=== PATIENT | male | born 1945 | race Caucasian/White ===

== ENCOUNTER 2021-01-04 09:07 | Observation (INO) | payer MEDICARE ==
[~2021-01-04] VITALS: Ht 182.9 cm; Wt 114.5 kg
[2021-01-04] VITALS (21 sets, daily range): BP systolic 138–165; BP diastolic 82–105
[2021-01-04] MEDS ORDERED: cefazolin/dext.iso 2gm/50ml 50 ML IV ONE (09:50)
[2021-01-04] MEDS ORDERED: normal saline 1,000 ML IV SCH (09:50)
[2021-01-04] MEDS ORDERED: ceFAZolin 2gm in dextrose, iso 50 ML IV ONE (09:52)
[2021-01-04] MEDS ORDERED: diphenhydrAMINE 25mg capsule PO PRN ×2 (09:55→19:00)
[2021-01-04] MEDS ORDERED: GLIP5TAB13 PO (10:40)
[2021-01-04] MEDS ORDERED: LISI2.5T2 PO (10:40)
[2021-01-04] MEDS ORDERED: DIPH25CA83 PO (10:40)
[2021-01-04] MEDS ORDERED: ATOR-2 PO (10:40)
[2021-01-04] MEDS ORDERED: ASPI-611 PO (10:40)
[2021-01-04] MEDS ORDERED: CARV25TA2 PO (10:40)
[2021-01-04] MEDS ORDERED: CLOP75TA15 PO (10:40)
[2021-01-04] MEDS ORDERED: METF-438 PO (10:40)
[2021-01-04 11:21] LABS: BASOPHILS # (AUTO) 0.1 X10'3 (0-0.2); BASOPHILS % (AUTO) 1.3 % (0-1); EOSINOPHILS # (AUTO) 0.2 X10'3 (0-0.9); EOSINOPHILS % (AUTO) 1.7 % (0-6); HEMATOCRIT 41.2 % (42.0-52.0); HEMOGLOBIN 14.4 g/dl (14.0-17.9); LYMPHOCYTES # (AUTO) 2.6 X10'3 (1.1-4.8); LYMPHOCYTES % (AUTO) 27.9 % (21-51); MEAN CORPUSCULAR HEMOGLOBIN 35.3 PG (27.0-31.0); MEAN CORPUSCULAR VOLUME 100.8 FL (78-98); MEAN PLATELET VOLUME 9.8 FL (7.4-10.4); MONOCYTES % (AUTO) 10.9 % (2-12); NEUTROPHILS # (AUTO) 5.3 X10'3 (1.8-7.7); NEUTROPHILS % (AUTO) 58.2 % (42-75); PLATELET COUNT 163 X10'3 (140-440); RED BLOOD COUNT 4.09 X10'6 (4.70-6.10); RED CELL DISTRIBUTION WIDTH 12.3 % (11.5-14.5); WHITE BLOOD COUNT 9.1 X10'3 (4.5-11.0)
[2021-01-04 11:29] LABS: ALBUMIN 3.9 G/DL (3.4-5.0); ANION GAP 10 (8-16); BLOOD UREA NITROGEN 15 MG/DL (7-18); BUN/CREATININE RATIO 15.8 (5.4-32.0); CHLORIDE 104 MMOL/L (99-107); CREATININE 0.95 MG/DL (0.60-1.10); GLUCOSE 181 MG/DL (70-104); SODIUM 142 MMOL/L (135-145); eGFR 77 ML/MIN
[2021-01-04] MEDS: normal saline 1,000 ML IV SCH ×3 (11:44→22:39)
[2021-01-04] MEDS ORDERED: midazolam 1 mg/ML 2ml injection ONE ×6 (12:19→15:29)
[2021-01-04] MEDS ORDERED: iohexol 350MG/ML 100ml bottle IV ONE ×3 (12:19→14:00)
[2021-01-04] MEDS ORDERED: LIDOcaine 1% (10mg/ml)w/preservative injection 20ml MDV ONE (12:19)
[2021-01-04] MEDS ORDERED: fentaNYL/PF 50MCG/1 ML 2ML syringe ONE ×4 (12:19→15:29)
[2021-01-04] MEDS ORDERED: heparin 1,000unit/ml 10ml vial 10 ML ONE (12:19)
[2021-01-04] MEDS ORDERED: proCHLORperazine 10 MG/2 ml inj ONE (13:04)
[2021-01-04] MEDS ORDERED: vancomycin 1,000mg inj ONE (14:00)
[2021-01-04] MEDS ORDERED: LIDOcaine 1% W/epiNEPHrine 1:100,000 20ml vial ONE ×2 (14:00→14:26)
[2021-01-04] MEDS ORDERED: Thrombin (Bovine) 5,000 unit vial TP ONE (15:24)
[2021-01-04] MEDS ORDERED: ondansetron/PF 4mg/2ml inj IV PRN (16:05)
[2021-01-04] MEDS ORDERED: HYDROcodone/acetaminophen 5mg/325mg tablet PO PRN ×2 (16:10→20:30)
[2021-01-04] MEDS ORDERED: HYDROcodone/acetaminophen 10/325mg tab PO PRN (16:10)
[2021-01-04] MEDS ORDERED: proCHLORperazine 10 MG/2 ml inj IV PRN (16:10)
--- NOTE | 2021-01-04 19:50 | NUR ---
PATIENT ARRIVED STABLE WITH AT BEDSIDE , NO S/S OF HEMORRHAGE AT THIS TIME
--- NOTE | 2021-01-04 20:00 | NUR ---
180-Rica RN with primary RN to discuss pacemaker discharge, assessed right groin site, CDI, stood patient at side of bed, walked in place, denied dizziness, ambulated patient into hallway and back, at doorway patient began to leak blood from right groin site, walked patient to bed, laid flat, applied manual pressure to site. sterile gloves donned, Rica removed dressing, primary RN placed sterile 4x4 gauze to site, waited 15 minutes, no further bleeding noted, dressing placed. 1844- Notified Dr. Muller that as we were ambulating patient for discharge patient began bleeding from right groin site. Received orders for patient to remain flat for additional 2 hours with femstop. Patient to be transferred to telemetry floor for further observation. Patient is to be discharged at 2200 if site is stable but okay to stay over night for observation. 1944- Provided report to Keith, transferred patient with all belongings to 3016[address], , Julieta, present. Keith present to assess femoral site and pulses upon arrival to telemetry.
[2021-01-04] MEDS: carVEDilol 12.5mg tablet PO SCH (21:25)
[2021-01-05 02:00] VITALS: BP 136/77
[2021-01-05] MEDS: normal saline 1,000 ML IV SCH (03:59)
--- NOTE | 2021-01-05 06:27 | NUR ---
Patient in room PCU 3016. I have received report from Keith VERAS and had the opportunity to ask questions and assume patient care.
--- NOTE | 2021-01-05 07:11 | NUR ---
Patient does not take insulin at home, and does not want insulin this morning to cover BG 223, patient drank a soda prior to check. Going home early afternoon.
[2021-01-05 07:50] LABS: CHOL/HDL RATIO 4.8 (0.00-4.99); CHOLESTEROL 184 MG/DL (0-200); HDL CHOLESTEROL 38 MG/DL (35-60); LDL CHOLESTEROL 103 MG/DL (50-100); TRIGLYCERIDES 216 MG/DL (20-135)
[2021-01-05] MEDS ORDERED: clopidogrel 75mg tablet PO SCH (08:00)
[2021-01-05] MEDS ORDERED: atorvastatin 20mg tablet PO SCH (08:00)
[2021-01-05] MEDS ORDERED: lisinopril 2.5mg tablet PO SCH (08:00)
[2021-01-05] MEDS ORDERED: aspirin 81mg tablet.DR PO SCH (08:00)
[2021-01-05] MEDS ORDERED: carVEDilol 12.5mg tablet PO SCH (08:00)
[2021-01-05] MEDS ORDERED: glipizide 5mg tablet PO SCH (08:00)
[2021-01-05 08:51] VITALS: BP_SYST 145
[2021-01-05] MEDS: carVEDilol 12.5mg tablet PO SCH (08:51)
--- NOTE | 2021-01-05 10:17 | NUR ---
Patient safe for discharge per MD orders, dc instructions reviewed with patient and questions answered, PIV and tele DC, no new prescriptions, wheeled to lobby with .
[2021-01-07] MEDS ORDERED: metFORMIN 500mg tablet PO SCH (08:00)
== END 2021-01-05 10:35 | disposition home or self-care (01) ==
LOC: SSTAY O 09:07 → PCU 3S 18:46
PROVIDERS: ADMIT Internal Medicine Cardiovascular Disease; ATTEND Internal Medicine Cardiovascular Disease
DX: I25.5 Ischemic cardiomyopathy (principal); I25.118 Atherosclerotic heart disease of native coronary artery with other forms of angina pectoris; I44.7 Left bundle-branch block, unspecified; I11.0 Hypertensive heart disease with heart failure; I50.22 Chronic systolic (congestive) heart failure; E11.9 Type 2 diabetes mellitus without complications; E78.5 Hyperlipidemia, unspecified; I25.2 Old myocardial infarction; Z95.5 Presence of coronary angioplasty implant and graft; Z90.49 Acquired absence of other specified parts of digestive tract; Z79.84 Long term (current) use of oral hypoglycemic drugs; Z79.82 Long term (current) use of aspirin; Z79.899 Other long term (current) drug therapy
CPT/HCPCS: 33225; 33249; 36415; 71045; 80048; 80061; 82948; 83735; 85025; 85610; 87081; 93005; 93458; 96361; 96365; 96366; C1760; C1769; C1777; C1882; C1887; C1894; C1898; C1900; G0378; J0780; J1644; J2001; J2250; J3010; J3370; J7030; Q0163; Q9967; 93641; 99152; 99153; A4565; A4620; A6258